=== PATIENT | female | born 1955 | race Caucasian/White ===

== ENCOUNTER 2017-06-07 14:16 | Emergency (ER) | payer BC ==
--- NOTE | 2017-06-07 15:22 | CR ---
Left elbow There is a joint effusion with both anterior and posterior fat pads visible there is a nondisplaced subtle radial head fracture. Impression: Subtle radial head fracture with joint effusion at the elbow
--- NOTE | 2017-06-07 15:24 | CR ---
Left knee Medial and lateral joint compartments are well preserved. There is mild spurring of the lateral join t compartment. On the lateral view there is moderately severe patellofemoral osteoarthropathy with a small joint effusion. Impression: Degenerative arthropathy as described
[2017-06-07] MEDS ORDERED: traMADol 50 MG Tab PO ONE (15:31)
--- NOTE | 2017-06-07 15:35 | EDM.PDOC ---
ED HPI GENERAL MEDICAL PROBLEM - General Chief Complaint: Upper Extremity Injury/Pain Stated Complaint: FALL Time Seen by Provider: 06/07/17 14:24 Source of Information: Reports: Patient History Limitations: Reports: No Limitations - History of Present Illness INITIAL COMMENTS - FREE TEXT/NARRATIVE: History of present illness: []Patient tripped over her own feet and fell on a sidewalk landing on her left elbow and left knee. She is ambulatory however it hurts to move her elbow with the slightest movement. Denies any numbness or tingling. Review of systems: As per history of present illness and below otherwise all systems reviewed and negative. Past medical history: As per history of present illness and as reviewed below otherwise noncontributory. Surgical history: As per history of present illness and as reviewed below otherwise noncontributory. Social history: No reported history of drug or alcohol abuse. Family history: As per history of present illness and as reviewed below otherwise noncontributory. Physical exam: General: Well developed, well nourished in NAD HEENT: Atraumatic, normocephalic, pupils reactive, negative for conjunctival pallor or scleral icterus, mucous membranes moist, throat clear, neck supple, nontender, trachea midline. Lungs: Clear to auscultation, breath sounds equal bilaterally, chest nontender. Heart: S1S2, regular, negative for clicks, rubs, or JVD. Abdomen: Soft, nondistended, nontender. Negative for masses or hepatosplenomegaly. Negative for costovertebral tenderness. Pelvis: Stable nontender. Genitourinary: Deferred. Rectal: Deferred. Extremities: Abrasions to the left knee, small effusion, full range of motion and no instability on exam. Patient's left upper extremity she is unable to move her elbow was and has severe pain with slightest passive movement. negative for cords or calf pain. Neurovascular unremarkable. Neuro: Awake, alert, oriented. Cranial nerves II through XII unremarkable. Cerebellum unremarkable. Motor and sensory unremarkable throughout. Exam nonfocal. Diagnostics: []X-ray showing subtle radial head fracture nondisplaced knee shows chronic arthritis no fracture Therapeutics: []Tramadol Impression: []Radial head fracture Plan: []Follow-up with orthopedics, tramadol for pain, ice return if symptoms worsen or change Definitive disposition and diagnosis as appropriate pending reevaluation and review of above. Left Elbow Pain Score (Numeric/FACES): 5 - Related Data Allergies Allergy/AdvReac Type Severity Reaction Status Date / Time No Known Allergies Allergy Verified 06/07/17 14:27 Home Meds: Home Meds traMADol [Ultram] 50 mg PO Q8H PRN #20 tablet 06/07/17 [Rx] Past Medical History - Past Health History Medical/Surgical History: Denies Medical/Surgical History - Infectious Disease History Infectious Disease History: Reports: Chicken Pox Social & Family History - Family History Family Medical History: Noncontributory - Tobacco Use Smoking Status *Q: Never Smoker Second Hand Smoke Exposure: No - Alcohol Use Days Per Week of Alcohol Use: 0 - Recreational Drug Use Recreational Drug Use: No Review of Systems - Review of Systems Review Of Systems: See Below ED EXAM, GENERAL - Physical Exam Exam: See Below (See history of present illness) Course - Vital Signs Last Recorded V/S: Last Vital Signs Temp 36.3 C 06/07/17 14:24 Pulse 96 06/07/17 14:24 Resp 18 06/07/17 14:24 BP 138/88 06/07/17 14:24 Pulse Ox 93 L 06/07/17 14:24 - Orders/Labs/Meds Meds: Medications Discontinued Medications Generic Name Dose Route Start Last Admin Trade Name Raina PRN Reason Stop Dose Admin Tramadol HCl 50 mg 06/07/17 15:31 Ultram PO 06/07/17 15:32 ONETIME ONE Departure - Departure Time of Disposition: 15:34 Disposition: Home, Self-Care 01 Condition: Good, Fair Clinical Impression: Fracture of radial head, left, closed Qualifiers: Encounter type: initial encounter Fracture alignment: nondisplaced Qualified Code(s): S52.125A - Nondisplaced fracture of head of left radius, initial encounter for closed fracture - Discharge Information Forms: ED Department Discharge
[2017-06-07 16:05] VITALS: BP 136/85
== END 2017-06-07 16:13 | disposition home or self-care (01) ==
LOC: MW.ED 14:16
DX: S52.125A Nondisplaced fracture of head of left radius, initial encounter for closed fracture (principal); S80.212A Abrasion, left knee, initial encounter; W10.1XXA Fall (on)(from) sidewalk curb, initial encounter
CPT/HCPCS: 73080; 73562; 99283; A9270; 99282

== ENCOUNTER 2020-01-06 05:17 | Emergency (ER) | payer BC ==
[2020-01-06] MEDS ORDERED: Acetaminophen/HYDROcodone 325-5 MG Tab PO ONE (06:20)
--- NOTE | 2020-01-06 06:24 | EDM.PDOC ---
ED HPI GENERAL MEDICAL PROBLEM - General Chief Complaint: Upper Extremity Injury/Pain Stated Complaint: FELL, INJURED LT WRIST Time Seen by Provider: 01/06/20 05:31 - History of Present Illness INITIAL COMMENTS - FREE TEXT/NARRATIVE: 64-year-old female presents with left wrist pain. Patient fell on outstretched hand tripping over pictures going to the bathroom in the middle the night. She had immediate pain to the left wrist which is 8/10 in severity. She took no special medications for this illness. Patient denies any other trauma. There was no head trauma or body trauma. Review of systems otherwise negative. Patient denies any chest pain, shortness of breath, fever, chills, weakness, numbness, headache, vision changes, confusion. No recent dysuria. 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 Pain Score (Numeric/FACES): 6 - Related Data Allergies Allergy/AdvReac Type Severity Reaction Status Date / Time No Known Allergies Allergy Verified 01/06/20 05:28 Home Meds: Home Meds Hydrocodone/Acetaminophen [Hydrocodon-Acetaminophen 5-325] 1 each PO Q6HR PRN # 6 tablet 01/06/20 [Rx] Past Medical History - Past Health History Medical/Surgical History: Denies Medical/Surgical History HEENT History: Reports: None Cardiovascular History: Reports: None Respiratory History: Reports: None Gastrointestinal History: Reports: None Genitourinary History: Reports: None 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: Musculoskeletal History: Reports: None Neurological History: Reports: None Psychiatric History: Reports: Anxiety, Depression Endocrine/Metabolic History: Reports: None Insulin Pump Model and Utility Bill Collector: None Hematologic History: Reports: None Immunologic History: Reports: None Oncologic (Cancer) History: Reports: None Dermatologic History: Reports: None - Infectious Disease History Infectious Disease History: Reports: None - Past Surgical History Female Surgical History: Reports: Hysterectomy Social & Family History - Family History Family Medical History: Noncontributory - Tobacco Use Smoking Status *Q: Never Smoker - Caffeine Use Caffeine Use: Reports: Coffee - Recreational Drug Use Recreational Drug Use: No Review of Systems - Review of Systems Review Of Systems: Comprehensive ROS is negative, except as noted in HPI. ED EXAM, GENERAL - Physical Exam Exam: See Below Free Text/Narrative:: General: No acute distress. Comfortable. Extremities: Tenderness and swelling over the left wrist especially the radial side. Excellent pulses. Able to move the fingers. Normal sensation in the fingers. Peripheral examination revealed no pedal edema. Peripheral pulses were 2+. Course - Vital Signs Text/Narrative:: Stable fracture with maintained vascular supply neurological as well as power distally. Fairly well positioned radial component. Follow-up orthopedics. Return with any increases in pain. Last Recorded V/S: Last Vital Signs Temp 97.8 F 01/06/20 07:11 Pulse 71 01/06/20 07:11 Resp 20 01/06/20 05:26 BP 151/90 H 01/06/20 07:11 Pulse Ox 97 01/06/20 07:11 - Orders/Labs/Meds Meds: Medications Discontinued Medications Generic Name Dose Route Start Last Admin Trade Name Freq PRN Reason Stop Dose Admin Hydrocodone Bitart/Acetaminophen 1 tab 01/06/20 06:20 01/06/20 06:27 [place] 325-5 Mg PO 01/06/20 06:21 1 tab ONETIME ONE Administration - Radiology Interpretation Free Text/Narrative:: Patient with isolated trauma who declines further examination other than her left wrist. Fracture noted. Splinting follow-up orthopedics. Return precautions. Departure - Departure Time of Disposition: 19:05 Disposition: Home, Self-Care 01 Condition: Good Clinical Impression: Closed fracture of radius - Discharge Information Prescriptions: Hydrocodone/Acetaminophen [Hydrocodon-Acetaminophen 5-325] 1 each PO Q6HR PRN # 6 tablet PRN Reason: Pain (Severe 7-10) Instructions: Wrist Fracture Treated With Immobilization, [id number] Referrals: PCP,None [Primary Care Provider] - Forms: ED Department Discharge Additional Instructions: If your doctor allows it, take anti-inflammatory medication help with pain. For breakthrough pain use hydrocodone. Make sure you take a laxative with this medication as it can make you constipated. Follow-up with orthopedics first available appointment. Return to emergency immediately with any worsening. [facility] [address], [address] [place] [address] Sepsis Event Note - Evaluation Sepsis Screening Result: No Definite Risk - Focused Exam Date Exam was Performed: 01/07/20 Time Exam was Performed: 19:23
--- NOTE | 2020-01-06 06:34 | CR ---
Indication: Injury and pain Technique: Left hand 3 views Comparison: None Findings/Impression: Bones: Acute nondisplaced fractures are present in the distal radius including the intra-articular surface and also the ulnar styloid. No other osseous abnormality. Joint spaces: Unremarkable for age. Soft tissues: Unremarkable. Dictated by Wally Young MD @ Jan 06 2020 6:27AM Signed by Dr. Wally Young @ Jan 06 2020 6:32AM
[2020-01-06 07:12] VITALS: BP 151/90; PULSE 71
== END 2020-01-06 07:20 | disposition home or self-care (01) ==
LOC: MW.ED 05:17
DX: S52.572A Other intraarticular fracture of lower end of left radius, initial encounter for closed fracture (principal); W01.0XXA Fall on same level from slipping, tripping and stumbling without subsequent striking against object, initial encounter
CPT/HCPCS: 29125; 73130; 99283; A9270

== ENCOUNTER 2020-01-27 06:41 | Day surgery (SDC) | payer BC ==
[~2020-01-27 06:41] MED LIST: Lactated Ringers 1,000 ML IV SCH
[2020-01-27] MEDS ORDERED: Bupivacaine 0.5%/EPINEPHrine 1:200,000 10 ML SDV ONE ×2 (06:58→06:59)
[2020-01-27] MEDS ORDERED: Lidocaine 2% 5 ML SDV ONE (07:01)
--- NOTE | 2020-01-27 07:12 | PCM.PREANE ---
Preanesthetic Assessment - Anesthesia/Transfusion/Family Hx Anesthesia History: Prior Anesthesia Without Reaction Family History of Anesthesia Reaction: No Transfusion History: No Prior Transfusion(s) Intubation History: Unknown - Review of Systems General: No Symptoms Pulmonary: No Symptoms Cardiovascular: No Symptoms Gastrointestinal: No Symptoms Neurological: No Symptoms Other: Reports: None - Physical Assessment Height: 5 ft 6 in Weight: 93.44 kg ASA Class: 2 Mental Status: Alert & Oriented x3 Airway Class: Mallampati = 2 Dentition: Reports: Dentures (upper) Thyro-Mental Finger Breadths: 3 Mouth Opening Finger Breadths: 3 ROM/Head Extension: Full Lungs: Clear to Auscultation, Normal Respiratory Effort Cardiovascular: Regular Rate, Regular Rhythm - Allergies Allergies/Adverse Reactions: Allergies Allergy/AdvReac Type Severity Reaction Status Date / Time No Known Allergies Allergy Verified 01/21/20 12:23 - Blood Blood Available: No - Anesthesia Plan Pre-Op Medication Ordered: None - Acknowledgements Anesthesia Type Planned: Regional Block (brachial plexus block with sedation) Pt an Appropriate Candidate for the Planned Anesthesia: Yes Alternatives and Risks of Anesthesia Discussed w Pt/Guardian: Yes Pt/Guardian Understands and Agrees with Anesthesia Plan: Yes PreAnesthesia Questionnaire - Past Health History Medical/Surgical History: Denies Medical/Surgical History HEENT History: Other HEENT History: glasses, top denture, dental implant Cardiovascular History: Reports: None Respiratory History: Reports: None Gastrointestinal History: Reports: Other (See Below) Other Gastrointestinal History: hx of gastric ulcer Genitourinary History: Reports: None 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: Musculoskeletal History: Reports: Arthritis, Fracture Other Musculoskeletal History: hx fx left elbow Neurological History: Reports: Concussion Psychiatric History: Reports: Anxiety, Depression Endocrine/Metabolic History: Reports: Obesity/BMI 30+ (BMI 33.2) Hematologic History: Reports: None Immunologic History: Reports: None Oncologic (Cancer) History: Reports: None Dermatologic History: Reports: None - Infectious Disease History Infectious Disease History: Reports: None - Past Surgical History Head Surgeries/Procedures: Reports: None HEENT Surgical History: Reports: None Cardiovascular Surgical History: Reports: None Respiratory Surgical History: Reports: None GI Surgical History: Reports: None Female Surgical History: Reports: Hysterectomy, Salpingo-Oophorectomy Endocrine Surgical History: Reports: None Neurological Surgical History: Reports: None Musculoskeletal Surgical History: Reports: Arthroscopic Knee Oncologic Surgical History: Reports: None Dermatological Surgical History: Reports: None - SUBSTANCE USE Smoking Status *Q: Former Smoker Tobacco Use Within Last Twelve Months: No - HOME MEDS Home Medications: Home Meds Ibuprofen 2 tab PO ASDIRECTED PRN 01/21/20 [History] traMADol HCl [Tramadol HCl] 50 mg PO ASDIRECTED PRN 01/21/20 [History] - CURRENT (IN HOUSE) MEDS Current Meds: Current Medications Cefazolin Sodium/Dextrose 2 gm (/ Premix) 50 mls @ 100 mls/hr IV ONCALL VALERIY Lactated Ringer's (Ringers, Lactated) 1,000 mls @ 100 mls/hr IV ASDIRECTED VALERIY Discontinued Medications Bupivacaine HCl/Epinephrine Bitart (Marcaine 0.5%/Epinephrine 1:200,000) Confirm Administered Dose 10 ml .ROUTE .STK-MED ONE Stop: 01/27/20 06:59 Bupivacaine HCl/Epinephrine Bitart (Marcaine 0.5%/Epinephrine 1:200,000) Confirm Administered Dose 10 ml .ROUTE .STK-MED ONE Stop: 01/27/20 07:00 Lidocaine (Xylocaine-Mpf 2%) Confirm Administered Dose 5 ml .ROUTE .STK-MED ONE Stop: 01/27/20 07:02
[2020-01-27] MEDS ORDERED: fentaNYL 100 MCG/2 ML SDV ONE (07:27)
[2020-01-27] MEDS ORDERED: Bupivacaine 0.5% 30 ML SDV ONE (07:33)
[2020-01-27] MEDS ORDERED: Propofol 200 MG/20 ML SDV ONE ×3 (07:51→08:54)
[2020-01-27] MEDS ORDERED: ceFAZolin 2 GM in Premix Bag 1 BAG IV SCH (08:00)
[2020-01-27] MEDS ORDERED: ceFAZolin/Dextrose,Iso-Osmotic 2 GM/50 ML Duplex Bag IV ONE (08:07)
--- NOTE | 2020-01-27 08:16 | PCM.PRNOTE ---
- Free Text/Narrative Note: Supraclavicular block explained to patient verbalized understanding and wants to proceed with case. Pt prepped and ultrasound probe draped. Time out performed. Fentanyl 100 mcg given at this time. O2 applied. Ultrasound guided supraclavicular block performed. Bupivicaine 0.5% 20 ml and Lidocaine 2% 5 ml injected. Pt tolerated well. No adverse reactions noted. Stimiplex 20 g 2 inch needle used.
--- NOTE | 2020-01-27 10:04 | PCM.POSTAN ---
POST ANESTHESIA ASSESSMENT - MENTAL STATUS Mental Status: Alert, Oriented - VITAL SIGNS Vital Signs: Last Vital Signs Temp 36.0 C L 01/27/20 09:39 Pulse 80 01/27/20 09:39 Resp 14 01/27/20 09:39 BP 112/52 L 01/27/20 09:39 Pulse Ox 95 01/27/20 09:39 - RESPIRATORY Respiratory Status: Respiratory Rate WNL, Airway Patent, O2 Saturation Stable - CARDIOVASCULAR CV Status: Pulse Rate WNL, Blood Pressure Stable - GASTROINTESTINAL GI Status: No Symptoms - PAIN Pain Score: 0 - POST OP HYDRATION Hydration Status: Adequate & Stable - OBSERVATIONS Free Text/Narrative:: No anesthesia problems, patient skipped recovery room stage of postoperative care.
[2020-01-27 11:00] VITALS: BP 126/77; PULSE 64
--- NOTE | 2020-01-27 11:50 | PCM.OPNOTE ---
- General Post-Op/Procedure Note Date of Surgery/Procedure: 01/27/20 Operative Procedure(s): orif left distal radius Findings: left distal radius fracture Pre Op Diagnosis: left distal radius fracture, closed Post-Op Diagnosis: Same Anesthesia Technique: Moderate Sedation, Regional Block Primary Surgeon: Joselito Chacon Devops Solutions Architect: Mary Mark EBL in mLs: 25 Complications: None Condition: Good Free Text/Narrative:: Intake & Output 01/26/20 01/27/20 01/27/20 22:59 06:59 14:59 Intake Total 200 Balance 200
--- NOTE | 2020-01-27 11:51 | PCM48HPAN ---
Post Anesthesia Note - EVALUATION WITHIN 48HRS OF ANESTHETIC Vital Signs in Normal Range: Yes Patient Participated in Evaluation: Yes Respiratory Function Stable: Yes Airway Patent: Yes Cardiovascular Function Stable: Yes Hydration Status Stable: Yes Pain Control Satisfactory: Yes Nausea and Vomiting Control Satisfactory: Yes Mental Status Recovered: Yes Vital Signs: Last Vital Signs Temp 36.0 C L 01/27/20 09:39 Pulse 64 01/27/20 10:20 Resp 16 01/27/20 10:20 BP 126/77 01/27/20 10:20 Pulse Ox 95 01/27/20 10:20 - COMMENTS/OBSERVATIONS Free Text/Narrative:: No anesthesia problems
--- NOTE | 2020-01-27 15:32 | CR ---
Left wrist: 2 fluoroscopic spot views were obtained utilizing C-arm device. Comparison: Prior left wrist study of 01/21/20. Previous distal radial fracture shows fixation with plate and screws. Alignment of the fracture appears near-anatomic. Fluoroscopy time given as 3.25 seconds. Impression: 1. Procedural study as described above. Diagnostic code #2 Study was dictated in MDT
--- NOTE | 2020-01-27 17:59 | OR ---
SURGEON: Joselito Chacon DATE OF PROCEDURE: 01/27/2020 PREOPERATIVE DIAGNOSIS: Left distal radius fracture, closed. POSTOPERATIVE DIAGNOSIS: Left distal radius fracture, closed. PROCEDURES: 1. Open reduction and internal fixation of left distal radius fracture. 2. Application of short-arm splint. PRIMARY SURGEON: Joselito Chacon DO DIPPER FISH: KIT Oakley ROLE OF DIPPER FISH: Nurse practitioner, KIT Oakley, played an essential role in assisting in this case, helping to position the patient, retract structures as needed, as well as suturing and cutting sutures as indicated. Her presence improved patient's safety and decreased operative time. ANESTHESIA: Regional block plus conscious sedation. FLUID: Lactated Ringer's solution. ESTIMATED BLOOD LOSS: 10 mL. COMPLICATIONS: None. SPECIMEN: None. DISCHARGE DISPOSITION: Stable to PACU. HISTORY AND INDICATIONS FOR THE PROCEDURE: The patient was seen preoperatively in the clinic. I performed a hematoma block with a closed reduction prior. I then monitored for 2 weeks. She had moved and was 10 degrees of dorsal tilt with loss of radial height and inclination. Risks and goals of the procedure were explained to the patient. Informed consent was obtained. DETAILS OF PROCEDURE: The patient was seen preoperatively by myself and the Anesthesia staff in the preoperative holding room where the operative site was marked. She was brought to the operative suite by the Anesthesia staff where conscious sedation was administered. She previously had a regional block placed in the preoperative holding area. The left upper extremity was then prepped and draped in a sterile manner. Time-out was called identifying the correct patient, the correct procedure, the correct site, and that antibiotics had been given within appropriate period of time. The left upper extremity was exsanguinated. Tourniquet was raised to 250 mmHg and let down after closure. An incision was made over the flexor carpi radialis tendon extending to the radiocarpal joint and then proximally about 10 to 12 cm. Bleeding was controlled with Bovie electrocautery. After incising through the volar sheath of the FCR, I then retracted that radially to protect the radial artery. I then went through the volar sheath of the flexor carpi radialis tendon and then through the radial border of the pronator. The fragment was visualized and definitely the fracture was apex volar. Since it had been a couple of weeks, it did take a little bit to mobilize the proximal from distal fragment. After clearing off soft tissue off the bone and trying reduction with fluoroscopy, it was evident that I would need to use a plate reduction. I applied a Dalton multi-axial plate and then applied the distal row. After that, I then pinned the plate with some K-wires to the shaft. I then took fluoroscopy images. These showed that the screws were too distal, so I removed the plate from the shaft and then replaced all of my screws and then reattached to the shaft. This showed good screw placement. I then placed three nonlocking screws through the plate proximally. Fluoroscopy images showed good reduction with good radial height inclination and volar tilt of approximately 5 degrees. I then applied HydroSet. I had my patent legal assistant close the wound with 2-0 Vicryl interrupted sutures and then 3-0 nylon horizontal mattress sutures followed by Betadine-soaked Adaptic, Webril, and then application of a short-arm splint. The patient was allowed to awaken from sedation and taken to the PACU in stable condition. [id number] / MODL /[id number]
== END 2020-01-27 10:42 | disposition home or self-care (01) ==
LOC: MW.SDS 06:41
PROVIDERS: ATTEND Orthopaedic Surgery
DX: S52.502A Unspecified fracture of the lower end of left radius, initial encounter for closed fracture (principal); X58.XXXA Exposure to other specified factors, initial encounter
CPT/HCPCS: 76000; 76000-26; J0690; J2001; J2704; J3010; J3490; J7120

== ENCOUNTER 2020-08-01 14:12 | Inpatient (IN) | payer BC ==
[2020-08-01] MEDS ORDERED: Ondansetron 4 MG/2 ML SDV IVPUSH PRN (16:13)
[2020-08-01] MEDS ORDERED: Sodium Chloride 0.9% 2.5 ML Syringe FLUSH PRN (16:13)
[2020-08-01] MEDS ORDERED: Sodium Chloride 0.9% 1,000 ML IV SCH (16:30)
[2020-08-01] MEDS ORDERED: Sodium Chloride 0.9% 500 ML IV SCH (16:30)
[2020-08-01] MEDS ORDERED: FLU Vacc QS2020-21 36MOS UP/PF 60 MCG/0.5 ML Syringe IM ONE (17:00)
--- NOTE | 2020-08-01 17:25 | PCM.HP.2 ---
H&P History of Present Illness - General Date of Service: 08/01/20 Admit Problem/Dx: Admission Diagnosis/Problem Admission Diagnosis/Problem Nausea and vomiting - History of Present Illness Initial Comments - Free Text/Narative: patient is a 65 y/o F with PMH of anxiety, depression, gastric ulcer, arthritis, radial fracture, complex regional pain syndrome who comes is being admitted directly from respiratory clinic. Patient states that she attended a wedding in [place] on Jun, where a guest who had fever, attended the wedding, she wasn't aware about him being sick and was inclose proximity of him. states on Jun she started feeling very weak, she felt she had no appetite, hardly ate anything, had intermittent watery diarrhea, mo overt vomiting, also had extreme fatigue, headaches and lost 12 pounds of weight in 2 weeks, Patient mostly drank gatorade which caused her to have diarrhea every time she drank it. Patients is sick as well and other guests at the weddig are sick to per patie nt...hence she went to clinic where her lactic acid was found to be elevated, rest of her vitals were stable. she was tested for COVID which was positive, no requiring oxygen currently, CXR showed diffuse interstitial opacities, . Patient is being admitted for further care - Related Data Allergies/Adverse Reactions: Allergies Allergy/AdvReac Type Severity Reaction Status Date / Time No Known Allergies Allergy Verified 08/01/20 16:41 Home Medications: Home Meds Gabapentin [Neurontin] 300 mg PO TID 08/01/20 [History] Past Medical History - Past Health History Medical/Surgical History: Denies Medical/Surgical History HEENT History: Other HEENT History: glasses, top denture, dental implant Cardiovascular History: Reports: None, High Cholesterol Respiratory History: Reports: None Gastrointestinal History: Reports: Other (See Below) Other Gastrointestinal History: hx of gastric ulcer Genitourinary History: Reports: None 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: Musculoskeletal History: Reports: Arthritis, Fracture Other Musculoskeletal History: hx fx left elbow Neurological History: Reports: Concussion Psychiatric History: Reports: Anxiety, Depression Endocrine/Metabolic History: Reports: Obesity/BMI 30+ Insulin Pump Model and Technical Document Writer: None Hematologic History: Reports: None Immunologic History: Reports: None Oncologic (Cancer) History: Reports: None Dermatologic History: Reports: None - Infectious Disease History Infectious Disease History: Reports: Chicken Pox, Measles, Mumps - Past Surgical History Head Surgeries/Procedures: Reports: None HEENT Surgical History: Reports: None Cardiovascular Surgical History: Reports: None Respiratory Surgical History: Reports: None GI Surgical History: Reports: None Female Surgical History: Reports: Hysterectomy, Salpingo-Oophorectomy Endocrine Surgical History: Reports: None Neurological Surgical History: Reports: None Musculoskeletal Surgical History: Reports: Arthroscopic Knee, Other (See Below) Other Musculoskeletal Surgeries/Procedures:: fs left arm Oncologic Surgical History: Reports: None Dermatological Surgical History: Reports: None Social & Family History - Family History Family Medical History: Noncontributory - Tobacco Use Smoking Status *Q: Never Smoker Second Hand Smoke Exposure: No - Caffeine Use Caffeine Use: Reports: None - Recreational Drug Use Recreational Drug Use: No H&P Review of Systems - Review of Systems: Review Of Systems: See Below General: Reports: Fever, Chills, Malaise, Weakness, Night Sweats, Diaphoresis, Decreased Appetite, Weight Loss Pulmonary: Reports: Cough. Denies: Shortness of Breath, Wheezing, Pleuritic Chest Pain, Sputum Cardiovascular: Reports: Dyspnea on Exertion. Denies: Chest Pain, Palpitations, Orthopnea Gastrointestinal: Reports: Abdominal Pain, Anorexia, Diarrhea, Decreased Appetite, Flatus, Nausea. Denies: Distension, Hematemesis, Hematochezia, Vomiting Genitourinary: Denies: Dysuria, Frequency, Burning, Pain Musculoskeletal: Reports: Arm Pain. Denies: Neck Pain, Shoulder Pain, Back Pain, Leg Pain, Foot Pain Skin: Denies: Cyanosis, Jaundice, Mottled Psychiatric: Denies: Confusion, Depression, Mood Lability, Anxiety Neurological: Reports: Headache. Denies: Confusion, Dizziness, Numbness, Paresthesia Exam - Exam Exam: See Below - Vital Signs Vital Signs: Last Vital Signs Temp 36.8 C 08/01/20 16:31 Pulse 115 H 08/01/20 16:31 Resp 22 H 08/01/20 16:31 BP Pulse Ox 93 L 08/01/20 16:31 Weight: 101.151 kg - Exam Quality Assessment: No: Supplemental Oxygen General: Alert, Oriented, Mild Distress Neck: Supple, Trachea Midline Lungs: Clear to Auscultation, Normal Respiratory Effort, Rales Cardiovascular: Regular Rate, Regular Rhythm, Normal S1, Normal S2 GI/Abdominal Exam: Normal Bowel Sounds, Soft, Non-Tender - Patient Data Lab Results Last 24 hrs: Laboratory Results - last 24 hr 08/01/20 08/01/20 08/01/20 Range/Units 14:22 14:40 14:40 WBC 8.73 (4.0-11.0) K/uL RBC 4.20 L (4.30-5.90) M/uL Hgb 12.5 (12.0-16.0) g/dL Hct 36.9 (36.0-46.0) % MCV 87.9 (80.0-98.0) fL MCH 29.8 (27.0-32.0) pg MCHC 33.9 (31.0-37.0) g/dL RDW Std Deviation 51.6 (28.0-62.0) fl RDW Coeff of Mavis 16 H (11.0-15.0) % Plt Count 335 (150-400) K/uL MPV 9.40 (7.40-12.00) fL Neut % (Auto) 76.7 (48.0-80.0) % Lymph % (Auto) 12.7 L (16.0-40.0) % [place] % (Auto) 10.3 (0.0-15.0) % Eos % (Auto) 0.1 (0.0-7.0) % Baso % (Auto) 0.2 (0.0-1.5) % Neut # (Auto) 6.7 H (1.4-5.7) K/uL Lymph # (Auto) 1.1 (0.6-2.4) K/uL Brooke # (Auto) 0.9 H (0.0-0.8) K/uL Eos # (Auto) 0.0 (0.0-0.7) K/uL Baso # (Auto) 0.0 (0.0-0.1) K/uL Nucleated RBC % 0.0 /100WBC Nucleated RBCs # 0 K/uL Lactate 2.1 H* (0.20-2.00) mmol/L SARS CoV-2 RNA Rapid TEAGAN POSITIVE H (NEGATIVE) Result Diagrams: 08/01/20 14:40 08/01/20 14:40 Sepsis Event Note - Focused Exam Vital Signs: Vital Signs Temp Pulse Resp Pulse Ox 08/01/20 16:31 36.8 C 115 H 22 H 93 L - Problem List (1) COVID-19 SNOMED Code(s): 734893875 ICD Code: U07.1 - COVID-19 Status: Acute Current Visit: Yes (2) Generalized weakness SNOMED Code(s): 92743611 ICD Code: R53.1 - WEAKNESS Status: Acute Current Visit: Yes Problem List Initiated/Reviewed/Updated: Yes Orders Last 24hrs: Active Orders 24 hr Category Date Time Status Patient Status [ADT] Routine ADT 08/01/20 16:13 Active Influenza Vaccine Charge [RC] .DISCHARGE Care 08/01/20 16:45 Active Intake and Output [RC] QSHIFT Care 08/01/20 16:14 Active Oxygen Therapy [RC] PRN Care 08/01/20 16:13 Active Up to Chair [RC] ASDIRECTED Care 08/01/20 16:13 Active VTE/DVT Education [RC] PER UNIT ROUTINE Care 08/01/20 16:13 Active Vital Signs [RC] Q4H Care 08/01/20 16:13 Active Clear Liquid Diet [DIET] Diet 08/01/20 Lunch Active Chest 1V Frontal [CR] Routine Exams 08/01/20 15:04 Taken BASIC METABOLIC PANEL,BMP [CHEM] AM Lab 08/02/20 05:11 Ordered CBC WITH AUTO DIFF [HEME] AM Lab 08/02/20 05:11 Ordered COMPREHENSIVE METABOLIC PN,CMP [CHEM] Routine Lab 08/01/20 17:22 Ordered CORONAVIRUS COVID-19 PCR PHL Routine Lab 08/01/20 14:30 Ordered LACTATE WITH REFLEX [BG] Routine Lab 08/01/20 18:00 Ordered Enoxaparin [Lovenox] Med 08/01/20 16:15 Active 40 mg SUBCUT Q24H Ondansetron [Zofran] Med 08/01/20 16:13 Active 4 mg IVPUSH Q4H PRN Sodium Chloride 0.9% [Normal Saline] 1,000 ml Med 08/01/20 16:30 Active IV Q10H Sodium Chloride 0.9% [Normal Saline] 500 ml Med 08/01/20 16:30 Active IV .BOLUS Sodium Chloride 0.9% [Saline Flush] Med 08/01/20 16:13 Active 2.5 ml FLUSH ASDIRECTED PRN Saline Lock Insert [OM.PC] Routine Oth 08/01/20 16:13 Ordered Resuscitation Status Routine Resus Stat 08/01/20 16:13 Ordered Medication Orders Enoxaparin Sodium (Lovenox) 40 mg SUBCUT Q24H VALERIY Sodium Chloride (Normal Saline) 500 mls @ 999 mls/hr IV .BOLUS VALERIY Sodium Chloride (Normal Saline) 1,000 mls @ 100 mls/hr IV Q10H VALER[facility] Ondansetron HCl (Zofran) 4 mg IVPUSH Q4H PRN PRN Reason: Nausea Sodium Chloride (Saline Flush) 2.5 ml FLUSH ASDIRECTED PRN PRN Reason: Keep Vein Open Assessment/Plan Comment:: 65 y/o F admitted for generalized weakness, malaise, diarrhea, COVID-19 PNA not requiring oxygen currently Oxygen PRN to keep pulse oxy>92% Start dexamethasone, hold off on remdesivir not hypoxic currently Lovenox for dvt ppx clear diet, advance as tolerated IV PPI Monitor and replete electrolytes f/u on lactic acid after iv fluids are given
[2020-08-01] MEDS: Enoxaparin 40 MG/0.4 ML Syringe SUBCUT SCH (18:04)
[2020-08-01 18:05] LABS: CARBON DIOXIDE,CO2 27.1 mmol/L (21.0-32.0); POTASSIUM,K 3.5 mmol/L (3.5-5.1)
[2020-08-01] MEDS ORDERED: Sodium Chloride 0.9% 1,000 ML IV ONE (19:28)
[2020-08-01] MEDS ORDERED: Albuterol/Ipratropium 4 GM Inhalation Spray INH PRN (19:29)
--- NOTE | 2020-08-01 19:51 | CR ---
Indication: Cough. Technique: AP portable view of the chest. Comparison: None Findings: The heart is normal in size. Diffusely increased interstitial opacities are identified bilaterally. No pleural effusion or pneumothorax is identified. Impression: Diffuse increased interstitial opacities bilaterally Dictated by Gracie Paz MD @ Aug 01 2020 7:49PM Signed by Dr. Gracie Paz @ Aug 01 2020 7:50PM
[2020-08-01] MEDS: Dexamethasone 4 MG Tab PO SCH (20:28)
[2020-08-01] MEDS ORDERED: Aluminum Hydroxide/Magnesium Hydroxide/Simethicone Susp 30 ML Cup PO PRN (21:02)
[2020-08-01] MEDS: Pantoprazole 40 MG in Sodium Chloride 0.9% 10 ML IV SCH (22:20)
[2020-08-02 07:01] LABS: BLOOD UREA NITROGEN,BUN 9 mg/dL (7.0-18.0); CARBON DIOXIDE,CO2 23.1 mmol/L (21.0-32.0); CHLORIDE,CL 106 mmol/L (98-107); GLUCOSE RANDOM 139 mg/dL (74-106); SODIUM,NA 141 mmol/L (136-145)
[2020-08-02] MEDS: Dexamethasone 4 MG Tab PO SCH (09:28)
--- NOTE | 2020-08-02 13:17 | PCM.PN ---
- General Info Date of Service: 08/02/20 Admission Dx/Problem (Free Text): Admission Diagnosis/Problem Admission Diagnosis/Problem Nausea and vomiting Subjective Update: seen at bedside, feels better after iv fluids, had diarehea this am. upon ambulation pulse oxy dropped to high 80s. - Review of Systems General: Reports: Weakness, Fatigue, Malaise. Denies: Fever Pulmonary: Reports: Shortness of Breath, Cough, Sputum Cardiovascular: Reports: Dyspnea on Exertion. Denies: Chest Pain, Palpitations Gastrointestinal: Reports: Decreased Appetite, Diarrhea, Flatus. Denies: Abdominal Pain, Constipation, Difficulty Swallowing, Melena, Nausea, Vomiting Genitourinary: Denies: Dysuria, Frequency, Burning Musculoskeletal: Reports: Hand Pain. Denies: Neck Pain, Shoulder Pain, Arm Pain - Patient Data Vitals - Most Recent: Last Vital Signs Temp 36 C L 08/02/20 12:00 Pulse 92 08/02/20 12:00 Resp 20 08/02/20 12:00 BP 133/66 08/02/20 12:00 Pulse Ox 91 L 08/02/20 12:00 Weight - Most Recent: 101.151 kg I&O - Last 24 Hours: Intake & Output 08/01/20 08/02/20 08/02/20 22:59 06:59 14:59 Intake Total 900 Output Total 750 Balance 150 Lab Results Last 24 Hours: Laboratory Results - last 24 hr 08/01/20 08/01/20 08/01/20 Range/Units 14:22 14:40 14:40 WBC 8.73 (4.0-11.0) K/uL RBC 4.20 L (4.30-5.90) M/uL Hgb 12.5 (12.0-16.0) g/dL Hct 36.9 (36.0-46.0) % MCV 87.9 (80.0-98.0) fL MCH 29.8 (27.0-32.0) pg MCHC 33.9 (31.0-37.0) g/dL RDW Std Deviation 51.6 (28.0-62.0) fl RDW Coeff of Mavis 16 H (11.0-15.0) % Plt Count 335 (150-400) K/uL MPV 9.40 (7.40-12.00) fL Neut % (Auto) 76.7 (48.0-80.0) % Lymph % (Auto) 12.7 L (16.0-40.0) % [place] % (Auto) 10.3 (0.0-15.0) % Eos % (Auto) 0.1 (0.0-7.0) % Baso % (Auto) 0.2 (0.0-1.5) % Neut # (Auto) 6.7 H (1.4-5.7) K/uL Lymph # (Auto) 1.1 (0.6-2.4) K/uL Campbell # (Auto) 0.9 H (0.0-0.8) K/uL Eos # (Auto) 0.0 (0.0-0.7) K/uL Baso # (Auto) 0.0 (0.0-0.1) K/uL Nucleated RBC % 0.0 /100WBC Nucleated RBCs # 0 K/uL Lactate 2.1 H* (0.20-2.00) mmol/L Sodium (136-145) mmol/L Potassium (3.5-5.1) mmol/L Chloride (98-107) mmol/L Carbon Dioxide (21.0-32.0) mmol/L BUN (7.0-18.0) mg/dL Creatinine (0.6-1.0) mg/dL Est Cr Clr Drug Dosing mL/min Estimated GFR (MDRD) ml/min Glucose (74-106) mg/dL Calcium (8.5-10.1) mg/dL Total Bilirubin (0.2-1.0) mg/dL AST (15-37) IU/L ALT (14-63) IU/L Alkaline Phosphatase (46-116) U/L Total Protein (6.4-8.2) g/dL Albumin (3.4-5.0) g/dL Globulin (2.6-4.0) g/dL Albumin/Globulin Ratio (0.9-1.6) SARS CoV-2 RNA Rapid TEAGAN POSITIVE H (NEGATIVE) 08/01/20 08/01/20 08/02/20 Range/Units 14:40 19:30 06:35 WBC 5.86 (4.0-11.0) K/uL RBC 3.76 L (4.30-5.90) M/uL Hgb 11.0 L (12.0-16.0) g/dL Hct 33.2 L (36.0-46.0) % MCV 88.3 (80.0-98.0) fL MCH 29.3 (27.0-32.0) pg MCHC 33.1 (31.0-37.0) g/dL RDW Std Deviation 51.1 (28.0-62.0) fl RDW Coeff of Mavis 16 H (11.0-15.0) % Plt Count 330 (150-400) K/uL MPV 9.30 (7.40-12.00) fL Neut % (Auto) 82.1 H (48.0-80.0) % Lymph % (Auto) 13.1 L (16.0-40.0) % [place] % (Auto) 4.6 (0.0-15.0) % Eos % (Auto) 0.0 (0.0-7.0) % Baso % (Auto) 0.2 (0.0-1.5) % Neut # (Auto) 4.8 (1.4-5.7) K/uL Lymph # (Auto) 0.8 (0.6-2.4) K/uL [place] # (Auto) 0.3 (0.0-0.8) K/uL Eos # (Auto) 0.0 (0.0-0.7) K/uL Baso # (Auto) 0.0 (0.0-0.1) K/uL Nucleated RBC % 0.0 /100WBC Nucleated RBCs # 0 K/uL Lactate 1.3 (0.20-2.00) mmol/L Sodium 136 (136-145) mmol/L Potassium 3.5 (3.5-5.1) mmol/L Chloride 97 L (98-107) mmol/L Carbon Dioxide 27.1 (21.0-32.0) mmol/L BUN 10 (7.0-18.0) mg/dL Creatinine 1.0 (0.6-1.0) mg/dL Est Cr Clr Drug Dosing 56.00 mL/min Estimated GFR (MDRD) 56.0 ml/min Glucose 99 (74-106) mg/dL Calcium 9.0 (8.5-10.1) mg/dL Total Bilirubin 0.7 (0.2-1.0) mg/dL AST 48 H (15-37) IU/L ALT 54 (14-63) IU/L Alkaline Phosphatase 114 (46-116) U/L Total Protein 8.0 (6.4-8.2) g/dL Albumin 3.4 (3.4-5.0) g/dL Globulin 4.6 H (2.6-4.0) g/dL Albumin/Globulin Ratio 0.7 L (0.9-1.6) SARS CoV-2 RNA Rapid TEAGAN (NEGATIVE) 08/02/20 Range/Units 06:35 WBC (4.0-11.0) K/uL RBC (4.30-5.90) M/uL Hgb (12.0-16.0) g/dL Hct (36.0-46.0) % MCV (80.0-98.0) fL MCH (27.0-32.0) pg MCHC (31.0-37.0) g/dL RDW Std Deviation (28.0-62.0) fl RDW Coeff of Amvis (11.0-15.0) % Plt Count (150-400) K/uL MPV (7.40-12.00) fL Neut % (Auto) (48.0-80.0) % Lymph % (Auto) (16.0-40.0) % [place] % (Auto) (0.0-15.0) % Eos % (Auto) (0.0-7.0) % Baso % (Auto) (0.0-1.5) % Neut # (Auto) (1.4-5.7) K/uL Lymph # (Auto) (0.6-2.4) K/uL [place] # (Auto) (0.0-0.8) K/uL Eos # (Auto) (0.0-0.7) K/uL Baso # (Auto) (0.0-0.1) K/uL Nucleated RBC % /100WBC Nucleated RBCs # K/uL Lactate (0.20-2.00) mmol/L Sodium 141 (136-145) mmol/L Potassium 4.0 (3.5-5.1) mmol/L Chloride 106 (98-107) mmol/L Carbon Dioxide 23.1 (21.0-32.0) mmol/L BUN 9 (7.0-18.0) mg/dL Creatinine 0.8 (0.6-1.0) mg/dL Est Cr Clr Drug Dosing 69.99 mL/min Estimated GFR (MDRD) > 60.0 ml/min Glucose 139 H (74-106) mg/dL Calcium 8.3 L (8.5-10.1) mg/dL Total Bilirubin (0.2-1.0) mg/dL AST (15-37) IU/L ALT (14-63) IU/L Alkaline Phosphatase (46-116) U/L Total Protein (6.4-8.2) g/dL Albumin (3.4-5.0) g/dL Globulin (2.6-4.0) g/dL Albumin/Globulin Ratio (0.9-1.6) SARS CoV-2 RNA Rapid TEAGAN (NEGATIVE) Med Orders - Current: Current Medications Al Hydroxide/Mg Hydroxide (Mag-Al Plus) 30 ml PO Q4H PRN PRN Reason: Heartburn Albuterol/Ipratropium (Combivent Respimat) 0 gm INH Q4H PRN PRN Reason: Dyspnea Dexamethasone (Dexamethasone) 6 mg PO DAILY [facility] Last Admin: 08/02/20 09:28 Dose: 6 mg Documented by: Enoxaparin Sodium (Lovenox) 40 mg SUBCUT Q24H [facility] Last Admin: 08/01/20 18:04 Dose: 40 mg Documented by: Gabapentin (Neurontin) 300 mg PO TID [facility] Pantoprazole Sodium 40 mg/ (Sodium Chloride) 10 mls @ 300 mls/hr IV Q24H [facility] Last Admin: 08/01/20 22:20 Dose: 300 mls/hr Documented by: Ondansetron HCl (Zofran) 4 mg IVPUSH Q4H PRN PRN Reason: Nausea Sodium Chloride (Saline Flush) 2.5 ml FLUSH ASDIRECTED PRN PRN Reason: Keep Vein Open Discontinued Medications Sodium Chloride (Normal Saline) 500 mls @ 999 mls/hr IV .BOLUS [facility] Last Admin: 08/01/20 18:51 Dose: 999 mls/hr Documented by: Sodium Chloride (Normal Saline) 1,000 mls @ 100 mls/hr IV Q10H [facility] Last Admin: 08/01/20 19:18 Dose: 100 mls/hr Documented by: Sodium Chloride (Normal Saline) 1,000 mls @ 100 mls/hr IV ONETIME ONE Stop: 08/02/20 05:25 Last Admin: 08/01/20 20:28 Dose: 100 mls/hr Documented by: Influenza Virus Vaccine (Afluria Quad 2019- (3yr Up)) 60 mcg IM .ONCE ONE Stop: 08/01/20 17:01 - Exam General: Alert, Oriented Neck: Supple Lungs: Normal Respiratory Effort, Crackles, Rales Cardiovascular: Regular Rate, Regular Rhythm GI/Abdominal Exam: Normal Bowel Sounds, Soft, Non-Tender Sepsis Event Note - Evaluation Sepsis Screening Result: No Definite Risk - Focused Exam Vital Signs: Vital Signs Temp Pulse Resp BP Pulse Ox 08/02/20 12:00 36 C L 92 20 133/66 91 L 08/02/20 08:00 35.8 C L 65 16 144/82 H 93 L 08/02/20 04:00 36.1 C 65 17 130/74 93 L - Problem List & Annotations (1) COVID-19 SNOMED Code(s): 683109690 Code(s): U07.1 - COVID-19 Status: Acute Current Visit: Yes (2) Generalized weakness SNOMED Code(s): 55801894 Code(s): R53.1 - WEAKNESS Status: Acute Current Visit: Yes - Problem List Review Problem List Initiated/Reviewed/Updated: Yes - My Orders Last 24 Hours: My Active Orders 08/01/20 16:45 Influenza Vaccine Charge [RC] .DISCHARGE 08/01/20 19:29 RT Post Treatment Assessment [RC] Click to Edit RT Pre-Treatment Assessment [RC] Click to Edit Albuterol/Ipratropium [Combivent Respimat] See Dose Instructions INH Q4H PRN 08/01/20 19:30 dexAMETHasone 6 mg PO DAILY 08/01/20 21:02 Alum Hydrox/Mag Hydrox/Simeth [Mag-Al Plus] 30 ml PO Q4H PRN 08/01/20 22:00 Pantoprazole [ProTONIX IV] 40 mg Sodium Chloride 0.9% [Normal Saline] 10 ml IV Q24H 08/02/20 13:04 C DIFFICILE AG/TOXIN W/REFLEX [RM] Routine - Plan Plan:: 65 y/o F admitted for generalized weakness, malaise, diarrhea, COVID-19 PNA will start her on ocygen as needed, currekty 91% on RA Oxygen PRN to keep pulse oxy>92% Start dexamethasone, start remdesivir Lovenox for dvt ppx clear diet, advance as tolerated IV PPI Monitor and replete electrolytes stool studies for cdiff
[2020-08-02] MEDS ORDERED: Lactated Ringers 1,000 ML IV SCH (14:00)
[2020-08-02] MEDS: Gabapentin 300 MG Cap PO SCH ×2 (14:26→21:02)
[2020-08-02] MEDS: Enoxaparin 40 MG/0.4 ML Syringe SUBCUT SCH (16:07)
[2020-08-02] MEDS: Pantoprazole 40 MG in Sodium Chloride 0.9% 10 ML IV SCH (21:02)
[2020-08-03] MEDS: Gabapentin 300 MG Cap PO SCH ×3 (05:54→22:13)
[2020-08-03 06:19] LABS: BLOOD UREA NITROGEN,BUN 11 mg/dL (7.0-18.0); CARBON DIOXIDE,CO2 24.3 mmol/L (21.0-32.0); CHLORIDE,CL 108 mmol/L (98-107); GLUCOSE RANDOM 97 mg/dL (74-106); POTASSIUM,K 3.2 mmol/L (3.5-5.1); SODIUM,NA 142 mmol/L (136-145)
[2020-08-03] MEDS: Dexamethasone 4 MG Tab PO SCH (09:34)
[2020-08-03] MEDS ORDERED: REMDESIVIR (EUA) 100 MG in Sodium Chloride 0.9% 100 ML IV SCH (13:30)
--- NOTE | 2020-08-03 14:28 | PCM.PN ---
- General Info Date of Service: 08/03/20 Admission Dx/Problem (Free Text): Admission Diagnosis/Problem Admission Diagnosis/Problem Nausea and vomiting Subjective Update: seen at bedside, had diarrhea this am, improving. still feels very weak, has abdominal pain, no N/V, appetite is still not good Functional Status: Reports: Ambulating, Urinating. Denies: Tolerating Diet - Review of Systems General: Reports: Weakness, Fatigue, Malaise. Denies: Fever Pulmonary: Denies: Shortness of Breath, Pleuritic Chest Pain, Cough Cardiovascular: Reports: Dyspnea on Exertion. Denies: Chest Pain, Palpitations Gastrointestinal: Reports: Abdominal Pain, Decreased Appetite, Diarrhea. Denies: Constipation, Nausea, Vomiting Genitourinary: Denies: Dysuria, Frequency, Burning Musculoskeletal: Denies: Neck Pain, Shoulder Pain, Arm Pain, Hand Pain Skin: Denies: Cyanosis, Jaundice, Mottled, Pallor Neurological: Denies: Confusion, Dizziness, Headache - Patient Data Vitals - Most Recent: Last Vital Signs Temp 36.2 C 08/03/20 04:00 Pulse 66 08/03/20 04:00 Resp 15 08/03/20 04:00 BP 128/67 08/03/20 04:00 Pulse Ox 93 L 08/03/20 04:00 Weight - Most Recent: 101.151 kg I&O - Last 24 Hours: Intake & Output 08/02/20 08/03/20 08/03/20 22:59 06:59 14:59 Intake Total 580 1200 Output Total 400 760 Balance 180 440 Lab Results Last 24 Hours: Laboratory Results - last 24 hr 08/03/20 08/03/20 Range/Units 05:33 05:33 WBC 9.75 (4.0-11.0) K/uL RBC 3.66 L (4.30-5.90) M/uL Hgb 10.5 L (12.0-16.0) g/dL Hct 32.4 L (36.0-46.0) % MCV 88.5 (80.0-98.0) fL MCH 28.7 (27.0-32.0) pg MCHC 32.4 (31.0-37.0) g/dL RDW Std Deviation 50.4 (28.0-62.0) fl RDW Coeff of Mavis 16 H (11.0-15.0) % Plt Count 344 (150-400) K/uL MPV 9.20 (7.40-12.00) fL Neut % (Auto) 72.7 (48.0-80.0) % Lymph % (Auto) 18.2 (16.0-40.0) % [place] % (Auto) 8.8 (0.0-15.0) % Eos % (Auto) 0.1 (0.0-7.0) % Baso % (Auto) 0.2 (0.0-1.5) % Neut # (Auto) 7.1 H (1.4-5.7) K/uL Lymph # (Auto) 1.8 (0.6-2.4) K/uL [place] # (Auto) 0.9 H (0.0-0.8) K/uL Eos # (Auto) 0.0 (0.0-0.7) K/uL Baso # (Auto) 0.0 (0.0-0.1) K/uL Nucleated RBC % 0.0 /100WBC Nucleated RBCs # 0 K/uL Sodium 142 (136-145) mmol/L Potassium 3.2 L (3.5-5.1) mmol/L Chloride 108 H (98-107) mmol/L Carbon Dioxide 24.3 (21.0-32.0) mmol/L BUN 11 (7.0-18.0) mg/dL Creatinine 0.8 (0.6-1.0) mg/dL Est Cr Clr Drug Dosing 69.99 mL/min Estimated GFR (MDRD) > 60.0 ml/min Glucose 97 (74-106) mg/dL Calcium 7.9 L (8.5-10.1) mg/dL Phosphorus 3.3 (2.6-4.7) mg/dL Magnesium 2.0 (1.8-2.4) mg/dL Total Bilirubin 0.5 (0.2-1.0) mg/dL AST 32 (15-37) IU/L ALT 48 (14-63) IU/L Alkaline Phosphatase 113 (46-116) U/L Total Protein 6.4 (6.4-8.2) g/dL Albumin 2.6 L (3.4-5.0) g/dL Globulin 3.8 (2.6-4.0) g/dL Albumin/Globulin Ratio 0.7 L (0.9-1.6) Remigio Results Last 24 Hours: Microbiology 08/02/20 21:55 C. difficile Antigen & Toxins A,B - Final Stool / Feces Med Orders - Current: Current Medications Al Hydroxide/Mg Hydroxide (Mag-Al Plus) 30 ml PO Q4H PRN PRN Reason: Heartburn Albuterol/Ipratropium (Combivent Respimat) 0 gm INH Q4H PRN PRN Reason: Dyspnea Dexamethasone (Dexamethasone) [address] [facility] Last Admin: 08/03/20 09:34 Dose: 6 mg Documented by: Enoxaparin Sodium (Lovenox) [address] [facility] Last Admin: 08/02/20 16:07 Dose: 40 mg Documented by: Gabapentin (Neurontin) [address] [facility] Last Admin: 08/03/20 05:54 Dose: 300 mg Documented by: Pantoprazole Sodium 40 mg/ (Sodium Chloride) 10 mls @ 300 mls/hr IV Q24H [facility] Last Admin: 08/02/20 21:02 Dose: 300 mls/hr Documented by: Remdesivir 100 mg/ Sodium (Chloride) 100 mls @ 100 mls/hr IV Q24H [facility] Ondansetron HCl (Zofran) 4 mg IVPUSH Q4H PRN PRN Reason: Nausea Sodium Chloride (Saline Flush) 2.5 ml FLUSH ASDIRECTED PRN PRN Reason: Keep Vein Open Discontinued Medications Sodium Chloride (Normal Saline) 500 mls @ 999 mls/hr IV .BOLUS [facility] Last Admin: 08/01/20 18:51 Dose: 999 mls/hr Documented by: Sodium Chloride (Normal Saline) 1,000 mls @ 100 mls/hr IV Q10H [facility] Last Admin: 08/01/20 19:18 Dose: 100 mls/hr Documented by: Sodium Chloride (Normal Saline) 1,000 mls @ 100 mls/hr IV ONETIME ONE Stop: 08/02/20 05:25 Last Admin: 08/01/20 20:28 Dose: 100 mls/hr Documented by: Remdesivir 200 mg/ Sodium (Chloride) 250 mls @ 250 mls/hr IV ONETIME ONE Stop: 08/02/20 14:29 Last Admin: 08/02/20 14:26 Dose: 250 mls/hr Documented by: Lactated Ringer's (Ringers, Lactated) 1,000 mls @ 100 mls/hr IV ASDIRECTED VALERIY Stop: 08/02/20 23:59 Last Admin: 08/02/20 15:45 Dose: 100 mls/hr Documented by: Influenza Virus Vaccine (Afluria Quad 2019- (3yr Up)) 60 mcg IM .ONCE ONE Stop: 08/01/20 17:01 - Exam General: Alert, Oriented Lungs: Clear to Auscultation, Normal Respiratory Effort, Rhonchi Cardiovascular: Regular Rate, Regular Rhythm GI/Abdominal Exam: Soft, Tender, Abnormal Bowel Sounds. No: Distended Sepsis Event Note - Evaluation Sepsis Screening Result: No Definite Risk - Focused Exam Vital Signs: Vital Signs Temp Pulse Resp BP Pulse Ox 08/03/20 04:00 36.2 C 66 15 128/67 93 L - Problem List & Annotations (1) COVID-19 SNOMED Code(s): 007189053 Code(s): U07.1 - COVID-19 Status: Acute Current Visit: Yes (2) Generalized weakness SNOMED Code(s): 11480790 Code(s): R53.1 - WEAKNESS Status: Acute Current Visit: Yes - Problem List Review Problem List Initiated/Reviewed/Updated: Yes - My Orders Last 24 Hours: My Active Orders 08/02/20 Dinner Soft Diet [DIET] 08/03/20 13:30 Remdesivir (Eua) [Remdesivir (EUA)] 100 mg Sodium Chloride 0.9% [Normal Saline] 100 ml IV Q24H - Plan Plan:: 65 y/o F admitted for generalized weakness, malaise, diarrhea, COVID-19 PNA will start her on oxygen as needed, currently 91% on RA Oxygen PRN to keep pulse oxy>92% Start dexamethasone, cont remdesivir Lovenox for dvt ppx soft diet, advance as tolerated IV PPI Monitor and replete electrolytes stool studies for cdiff negative
[2020-08-03] MEDS ORDERED: Potassium Chloride Riders 40 MEQ in Premix Bag 1 BAG IV ONE (14:29)
[2020-08-03] MEDS ORDERED: Acetaminophen 325 MG Tab PO PRN (14:30)
[2020-08-03] MEDS ORDERED: Loperamide 2 MG Cap PO PRN (14:31)
[2020-08-03] MEDS ORDERED: Sodium Chloride 0.9% 500 ML IV ONE (14:45)
[2020-08-03] MEDS: Enoxaparin 40 MG/0.4 ML Syringe SUBCUT SCH (16:03)
[2020-08-03] MEDS: Pantoprazole 40 MG in Sodium Chloride 0.9% 10 ML IV SCH (22:13)
[2020-08-04] MEDS: Gabapentin 300 MG Cap PO SCH (06:01)
[2020-08-04] MEDS: Dexamethasone 4 MG Tab PO SCH (08:01)
[2020-08-04 11:48] VITALS: BP 143/90; PULSE 86
--- NOTE | 2020-08-04 11:56 | PCM.DCSUM1 ---
Discharge Summary - Discharge Data Discharge Date: 08/04/20 Discharge Disposition: Home, Self-Care 01 Condition: Good - Referral to Home Health Primary Care Physician: EAGLE Borges - Patient Summary/Data Hospital Course: Patient is a 65 y/o F with PMH of anxiety, depression, gastric ulcer, arthritis, radial fracture, complex regional pain syndrome who was admitted from [facility] for COVID-19 infection when she presented with fevers, fatigue, diarrhea, cough and shortness of breath. She was COVID positive with CXR showing diffuse interstitial opacities. She was requring supplemntal oxygen to keep sats above 90%. She was treated with dexamethasone, and remdesivir. She did have improvement in symptoms and was weened off supplemental oxygen. She is requesting discharge home today. She is to follow up at [facility]. - Patient Instructions Diet: Usual Diet as Tolerated Activity: As Tolerated Notify Provider of: Fever, Increased Pain, Nausea and/or Vomiting - Discharge Plan Prescriptions/Med Rec: dexAMETHasone [Decadron] 6 mg PO DAILY #7 tablet Home Medications: Home Meds Gabapentin [Neurontin] 300 mg PO TID 08/01/20 [History] dexAMETHasone [Decadron] 6 mg PO DAILY #7 tablet 08/04/20 [Rx] Patient Handouts: COVID-19 Frequently Asked Questions, COVID-19: How to Protect Yourself and Others - CDC, Infection Prevention in the Home, Dexamethasone tablets Referrals: Tami Kelly PA [Primary Care Provider] - 08/10/20 10:30 am - Discharge Summary/Plan Comment DC Time >30 min.: No - Patient Data Vitals - Most Recent: Last Vital Signs Temp 37 C 08/04/20 11:45 Pulse 86 08/04/20 11:45 Resp 15 08/04/20 11:45 BP 143/90 H 08/04/20 11:45 Pulse Ox 94 L 08/04/20 11:45 Weight - Most Recent: 101.151 kg I&O - Last 24 hours: Intake & Output 08/03/20 08/04/20 08/04/20 22:59 06:59 14:59 Intake Total 900 Output Total 500 Balance 400 Lab Results - Last 24 hrs: Laboratory Results - last 24 hr 08/03/20 Range/Units 05:53 Lipase 98 (73-393) U/L Med Orders - Current: Current Medications Acetaminophen (Tylenol) 650 mg PO Q6H PRN PRN Reason: Pain (mild 1-3) Al Hydroxide/Mg Hydroxide (Mag-Al Plus) 30 ml PO Q4H PRN PRN Reason: Heartburn Albuterol/Ipratropium (Combivent Respimat) 0 gm INH Q4H PRN PRN Reason: Dyspnea Dexamethasone (Dexamethasone) 6 mg PO DAILY [facility] Last Admin: 08/04/20 08:01 Dose: 6 mg Documented by: Enoxaparin Sodium (Lovenox) 40 mg SUBCUT Q24H [facility] Last Admin: 08/03/20 16:03 Dose: 40 mg Documented by: Gabapentin (Neurontin) 300 mg PO TID [facility] Last Admin: 08/04/20 06:01 Dose: 300 mg Documented by: Pantoprazole Sodium 40 mg/ (Sodium Chloride) 10 mls @ 300 mls/hr IV Q24H [facility] Last Admin: 08/03/20 22:13 Dose: 300 mls/hr Documented by: Remdesivir 100 mg/ Sodium (Chloride) 100 mls @ 100 mls/hr IV Q24H [facility] Last Admin: 08/03/20 14:51 Dose: 100 mls/hr Documented by: Loperamide HCl (Imodium) 2 mg PO ONETIME PRN PRN Reason: Diarrhea Ondansetron HCl (Zofran) 4 mg IVPUSH Q4H PRN PRN Reason: Nausea Sodium Chloride (Saline Flush) 2.5 ml FLUSH ASDIRECTED PRN PRN Reason: Keep Vein Open Discontinued Medications Sodium Chloride (Normal Saline) 500 mls @ 999 mls/hr IV .BOLUS [facility] Last Admin: 08/01/20 18:51 Dose: 999 mls/hr Documented by: Sodium Chloride (Normal Saline) 1,000 mls @ 100 mls/hr IV Q10H [facility] Last Admin: 08/01/20 19:18 Dose: 100 mls/hr Documented by: Sodium Chloride (Normal Saline) 1,000 mls @ 100 mls/hr IV ONETIME ONE Stop: 08/02/20 05:25 Last Admin: 08/01/20 20:28 Dose: 100 mls/hr Documented by: Remdesivir 200 mg/ Sodium (Chloride) 250 mls @ 250 mls/hr IV ONETIME ONE Stop: 08/02/20 14:29 Last Admin: 08/02/20 14:26 Dose: 250 mls/hr Documented by: Lactated Ringer's (Ringers, Lactated) 1,000 mls @ 100 mls/hr IV ASDIRECTED VALERIY Stop: 08/02/20 23:59 Last Admin: 08/02/20 15:45 Dose: 100 mls/hr Documented by: Potassium Chloride 40 meq/ (Premix) 100 mls @ 25 mls/hr IV ONETIME ONE Stop: 08/03/20 18:28 Last Admin: 08/03/20 14:59 Dose: 25 mls/hr Documented by: Sodium Chloride (Normal Saline) 500 mls @ 125 mls/hr IV ONETIME ONE Stop: 08/03/20 18:44 Last Admin: 08/03/20 14:55 Dose: 125 mls/hr Documented by: Influenza Virus Vaccine (Afluria Quad 2019- (3yr Up)) 60 mcg IM .ONCE ONE Stop: 08/01/20 17:01
== END 2020-08-04 11:50 | disposition home or self-care (01) | DRG 137 ==
LOC: MW.CHFP 14:12 → MW.MS 16:11 → OBSVTOIN 08-02 13:19
PROVIDERS: ADMIT Student in an Organized Health Care Education/Training Program; ATTEND Student in an Organized Health Care Education/Training Program
DX: U07.1 COVID-19 (principal); J12.89 Other viral pneumonia; E86.0 Dehydration; F41.9 Anxiety disorder, unspecified; F32.9 Major depressive disorder, single episode, unspecified; E66.9 Obesity, unspecified; Z68.34 Body mass index [BMI] 34.0-34.9, adult; Z79.899 Other long term (current) drug therapy
CPT/HCPCS: 36415; 71045; 71045-26; 80048; 80053; 83605; 83690; 83735; 84100; 85025; 87324; 96372; A9270-GY; C9113; G0378; G0379; J1650; J3480; J7030; J7040; J7050; J7120; J8540; U0002

== ENCOUNTER 2021-04-16 16:03 | Emergency (ER) | payer BC ==
[2021-04-16] MEDS ORDERED: Bacitracin Oint 1 GM U/D Packet TOP ONE (18:04)
[2021-04-16] MEDS ORDERED: Ketorolac 60 MG/2 ML SDV IM ONE (18:04)
--- NOTE | 2021-04-16 18:12 | EDM.PDOC ---
ED HPI GENERAL MEDICAL PROBLEM - General Chief Complaint: Laceration Stated Complaint: LEFT POINTER FINGER CUT Time Seen by Provider: 04/16/21 16:52 Source of Information: Reports: Patient History Limitations: Reports: No Limitations - History of Present Illness INITIAL COMMENTS - FREE TEXT/NARRATIVE: HISTORY AND PHYSICAL: History of present illness: The patient is a 65-year-old female who presents to the emergency room with complaints of laceration to her left second digit proximal phalange R side while peeling potatoes for dinner. She has put a pressure dressing on the area and did not take anything [id number] prior to arrival. Her last tetanus was 1 year ago. Patient denies any fever, chills, headache, change in vision, syncope or near syncope. Denies any chest pain, back pain, shortness of breath or cough. Denies any abdominal pain, nausea, vomiting, diarrhea, constipation or dysuria. Has not noted any blood in urine or stool. Patient has been eating and drinking appropriately. Review of systems: As per history of present illness and below otherwise all systems reviewed and negative. Past medical history: As per history of present illness and as reviewed below otherwise noncontributory. Surgical history: As per history of present illness and as reviewed below otherwise noncontributory. Social history: See social history for further information Family history: As per history of present illness and as reviewed below otherwise noncontributory. Physical exam: General: Well developed and well nourished. Alert and orientated x 3. Nontoxic in appearance and in no acute distress. Vital signs are stable and have been reviewed by me. Nursing notes were reviewed. HEENT: Atraumatic, normocephalic, pupils equal and reactive bilaterally, negative for conjunctival pallor or scleral icterus, mucous membranes moist, TMs normal bilaterally, throat clear, neck supple, nontender, trachea midline. No drooling or trismus noted. No meningeal signs. No hot potato voice noted. Lungs: Clear to auscultation bilaterally. No wheezes, rales, or rhonchi. Chest nontender. Normal work of breathing, no accessory muscles used. Heart: S1S2, regular rate and rhythm without overt murmur, gallops, or rubs. No JVD. No peripheral edema Abdomen: Soft, nondistended, nontender. Normoactive bowel sounds. Negative for masses or costovertebral tenderness. Skin: Left second finger proximal phalanx palmar side 4 cm"V shaped laceration with a moderate amount of bleeding. CMS is intact. Skin warm & dry. No lesions or rashes noted. Hematologic: No petechiae or purpra. Mucosa appropriate color and normal nail bed color and refill. Extremities: Atraumatic, moves all extremities per self without difficulty or deficits, negative for cords or calf pain. Neurovascular unremarkable. Neuro: Awake, alert, oriented. Cranial nerves II through XII unremarkable. Cerebellum unremarkable. Motor and sensory unremarkable throughout. Exam nonfocal. Psychiatric: Mood and affect are appropriate. Normal thought process. Answering questions appropriately. Notes: *This patient was seen and evaluated during the 2019 SARS-CoV-2 novel coronavirus pandemic period. Community viral transmission is ongoing at time of this encounter and the emergency department is operating under pandemic response procedures. As stated above the patient is here for a laceration repair. Please see procedure notes. The patient tolerated the procedure well. I have educated the patient on suture care and when to have the sutures removed. The patient is agreeable to discharge. I have talked with the patient about today's findings, in addition to providing specific details for plan of care. Reassessment at the time of disposition demonstrates that the patient is in no acute distress. The patient is stable for discharge, counseling was provided and we discussed in great detail signs and symptoms that would prompt them to return to the Emergency Department. Medication, follow up and supportive care measures were reviewed and discussed. Voices understanding and is agreeable to plan of care. Denies any further questions or concerns at this time. Therapeutics: Cane 1% Impression: Laceration Plan: 1. Keep the area clean and dry. Continue to monitor for signs of infection. Sutures to be removed in 7-10 days. You can use an antibiotic ointment on your finger but stay away from Neosporin as this can cause a rash. I have given you a finger splint please wear that for about 3 days. Again do not submerge your finger in water keep it clean and dry. 2. Tylenol and/or ibuprofen as needed for pain management. 3. Please follow-up with your primary care provider in the next 1-2 days. Return to the ED as needed and as discussed. Definitive disposition and diagnosis as appropriate pending reevaluation and review of above. left second digit Pain Score (Numeric/FACES): 8 - Related Data Allergies Allergy/AdvReac Type Severity Reaction Status Date / Time No Known Allergies Allergy Verified 08/01/20 16:41 Home Meds: Home Meds Gabapentin [Neurontin] 300 mg PO TID 08/01/20 [History] Past Medical History - Past Health History Medical/Surgical History: Denies Medical/Surgical History HEENT History: Other HEENT History: glasses, top denture, dental implant Cardiovascular History: Reports: None, High Cholesterol Respiratory History: Reports: None Gastrointestinal History: Reports: Other (See Below) Other Gastrointestinal History: hx of gastric ulcer Genitourinary History: Reports: None SET UP AND CHARGER History: Reports: Musculoskeletal History: Reports: Arthritis, Fracture Other Musculoskeletal History: hx fx left elbow Neurological History: Reports: Concussion Other Neuro History: CRPS Psychiatric History: Reports: Anxiety, Depression Endocrine/Metabolic History: Reports: Obesity/BMI 30+ Insulin Pump Model and Implementation Project Manager: None Hematologic History: Reports: None Other Hematologic History: cold agglutins. Immunologic History: Reports: None Oncologic (Cancer) History: Reports: None Dermatologic History: Reports: None - Infectious Disease History Infectious Disease History: Reports: Chicken Pox, Measles, Mumps - Past Surgical History Head Surgeries/Procedures: Reports: None HEENT Surgical History: Reports: None Cardiovascular Surgical History: Reports: None Respiratory Surgical History: Reports: None GI Surgical History: Reports: None Female Surgical History: Reports: Hysterectomy, Salpingo-Oophorectomy Endocrine Surgical History: Reports: None Neurological Surgical History: Reports: None Musculoskeletal Surgical History: Reports: Arthroscopic Knee, Other (See Below) Other Musculoskeletal Surgeries/Procedures:: fs left arm Oncologic Surgical History: Reports: None Dermatological Surgical History: Reports: None Social & Family History - Family History Family Medical History: No Pertinent Family History - Tobacco Use Tobacco Use Status *Q: Never Tobacco User - Caffeine Use Caffeine Use: Reports: None - Recreational Drug Use Recreational Drug Use: No ED ROS GENERAL - Review of Systems Review Of Systems: Comprehensive ROS is negative, except as noted in HPI. ED EXAM, SKIN/RASH Exam: See Below (see dictation) ED SKIN PROCEDURES - Laceration/Wound Repair Left Ventral Digit - 2nd (Index) Appearance: Subcutaneous Distal NVT: Neuro & Vascular Intact, No Tendon Injury Anesthetic Type: Local Local Anesthesia - Lidocaine (Xylocaine): 1% Plain Local Anesthetic Volume: 3cc Skin Prep: Chlorhexidine (Hibiciens) Saline Irrigation (cc's): 100 Exploration/Debridement/Repair: Wound Explored, No Foreign Material Found Closed with: Sutures Lac/Wound length In cm: 4 Suture Size: 3-0 # of Sutures: 5 Suture Type: Prolene Course - Vital Signs Last Recorded V/S: Last Vital Signs Temp 97.2 F 04/16/21 16:52 Pulse 76 04/16/21 18:17 Resp 16 04/16/21 18:17 BP 157/97 H 04/16/21 18:17 Pulse Ox 98 04/16/21 18:17 - Orders/Labs/Meds Orders: Active Orders 24 hr Category Date Time Status DME for Discharge [COMM] Stat Oth 04/16/21 18:05 Ordered Meds: Medications Discontinued Medications Generic Name Dose Route Start Last Admin Trade Name Freq PRN Reason Stop Dose Admin Bacitracin 1 dose 04/16/21 18:04 04/16/21 18:19 Bacitracin Oint 1 Gm U/D Packet TOP 04/16/21 18:05 1 dose ONETIME ONE Administration Ketorolac Tromethamine 60 mg 04/16/21 18:04 04/16/21 18:19 Ketorolac 60 Mg/2 Ml Sdv IM 04/16/21 18:05 60 mg ONETIME ONE Administration Lidocaine HCl 5 ml 04/16/21 17:04 04/16/21 17:29 Lidocaine 1% 5 Ml Sdv INJECT 04/16/21 17:05 5 ml ONETIME ONE Administration Departure - Departure Time of Disposition: 18:10 Disposition: Home, Self-Care 01 Condition: Good Clinical Impression: Laceration - Discharge Information *PRESCRIPTION DRUG MONITORING PROGRAM REVIEWED*: Not Applicable *COPY OF PRESCRIPTION DRUG MONITORING REPORT IN PATIENT MARITZA: Not Applicable Instructions: Laceration Care, Adult Referrals: Tami Kelly PA [Primary Care Provider] - Forms: ED Department Discharge Additional Instructions: The following information is given to patients seen in the emergency department who are being discharged to home. This information is to outline your options for follow-up care. We provide all patients seen in our emergency department with a follow-up referral. The need for follow-up, as well as the timing and circumstances, are variable depending upon the specifics of your emergency department visit. If you don't have a primary care physician on staff, we will provide you with a referral. We always advise you to contact your personal physician following an emergency department visit to inform them of the circumstance of the visit and for follow-up with them and/or the need for any referrals to a consulting specialist. The emergency department will also refer you to a specialist when appropriate. This referral assures that you have the opportunity for follow-up care with a specialist. All of these measure are taken in an effort to provide you with optimal care, which includes your follow-up. Under all circumstances we always encourage you to contact your private physician who remains a resource for coordinating your care. When calling for follow-up care, please make the office aware that this follow-up is from your recent emergency room visit. If for any reason you are refused follow-up, please contact the [facility] Emergency Department at and asked to speak to the emergency department charge nurse. [facility] [address] [place] [address] [place] [address] Plan: 1. Keep the area clean and dry. Continue to monitor for signs of infection. Sutures to be removed in 7-10 days. You can use an antibiotic ointment on your finger but stay away from Neosporin as this can cause a rash. I have given you a finger splint please wear that for about 3 days. Again do not submerge your finger in water keep it clean and dry. 2. Tylenol and/or ibuprofen as needed for pain management. 3. Please follow-up with your primary care provider in the next 1-2 days. Return to the ED as needed and as discussed. Sepsis Event Note (ED) - Evaluation Sepsis Screening Result: No Definite Risk - Focused Exam Vital Signs: Vital Signs Temp Pulse Resp BP Pulse Ox 04/16/21 18:17 76 16 157/97 H 98 04/16/21 16:52 97.2 F 98 17 164/74 H 97 - My Orders Last 24 Hours: My Active Orders 04/16/21 18:05 DME for Discharge [COMM] Stat - Assessment/Plan Last 24 Hours: My Active Orders 04/16/21 18:05 DME for Discharge [COMM] Stat
[2021-04-16 18:18] VITALS: BP 157/97; PULSE 76
== END 2021-04-16 18:25 | disposition home or self-care (01) ==
LOC: MW.ED 16:03
DX: S61.211A Laceration without foreign body of left index finger without damage to nail, initial encounter (principal); E66.9 Obesity, unspecified; Z68.30 Body mass index [BMI] 30.0-30.9, adult; W26.8XXA Contact with other sharp object(s), not elsewhere classified, initial encounter
CPT/HCPCS: 12002; 96372; 99282; J1885; 99283

== ENCOUNTER 2022-06-19 13:42 | Emergency (ER) | payer MEDICARE, OTHER ==
[2022-06-19] MEDS ORDERED: Sodium Chloride 0.9% 2.5 ML Syringe FLUSH PRN (14:00)
[2022-06-19] MEDS ORDERED: LORazepam 2 MG/ML SDV IVPUSH ONE (14:00)
[2022-06-19] MEDS ORDERED: Sodium Chloride 0.9% 10 ML Syringe FLUSH PRN (14:00)
[2022-06-19 14:58] LABS: ACETAMINOPHEN <2.0 ug/mL; BLOOD UREA NITROGEN,BUN 11 mg/dL (7.0-18.0); CARBON DIOXIDE,CO2 21.1 mmol/L (21.0-32.0); CHLORIDE,CL 105 mmol/L (98-107); GLUCOSE RANDOM 147 mg/dL (74-106); POTASSIUM,K 3.9 mmol/L (3.5-5.1); SODIUM,NA 139 mmol/L (136-145)
[2022-06-19 15:02] LABS: ESTIMATED GFR 50 mL/min (>60)
[2022-06-19] MEDS ORDERED: Sodium Chloride 0.9% 1,000 ML IV ONE (18:12)
[2022-06-19 19:45] VITALS: BP 151/87; PULSE 81
== END 2022-06-19 19:15 | disposition home or self-care (01) ==
LOC: MW.ED 13:42
DX: T43.211A Poisoning by selective serotonin and norepinephrine reuptake inhibitors, accidental (unintentional), initial encounter (principal); R00.0 Tachycardia, unspecified; I10 Essential (primary) hypertension; F41.9 Anxiety disorder, unspecified; E66.9 Obesity, unspecified; Z68.34 Body mass index [BMI] 34.0-34.9, adult; Z79.899 Other long term (current) drug therapy; Z90.710 Acquired absence of both cervix and uterus
CPT/HCPCS: 36415; 71045; 80053; 80143; 80179; 80307; 83735; 84443; 85025; 93005; 96361; 96374; 99284; J2060; J3490; J7030; 93010